=== PATIENT | female | born 1980 | race Two or more races ===

== ENCOUNTER 2017-01-04 14:08 | Emergency (ER) | payer OTHER ==
[~2017-01-04] VITALS: Ht 162.6 cm; Wt 106.1 kg
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
[2017-01-04] MEDS ORDERED: Norco 7.5mg/325mg tab ORAL ONE (14:30)
[2017-01-04 14:58] LABS: APPEARANCE,URINE CLEAR; KETONES,URINE NEGATIVE (NEGATIVE); LEUKOCYTE ESTERASE ,URINE 2+ (NEGATIVE); NITRITE,URINE NEGATIVE (NEGATIVE); PH,URINE 6.5 (4.5-8.0); PROTEIN,URINE NEGATIVE (NEGATIVE); UROBILINOGEN,URINE NORMAL MG/DL (0.0-1.0)
[2017-01-04 15:12] LABS: RBC,URINE 0 /HPF (0 - 2)
[2017-01-04 15:13] LABS: SQUAMOUS EPITHELIAL CELL,UR OCCASIONAL /LPF (NONE/OCC)
[2017-01-04] MEDS ORDERED: VIBRAMYCIN100 MG ORAL (15:28)
[2017-01-04] MEDS ORDERED: METRONIDAZOLE500 MG ORAL (15:28)
[2017-01-04] MEDS ORDERED: Lidocaine 1% MPF 10mg/ml 5ml ONE (15:34)
[2017-01-04] MEDS ORDERED: Lidocaine 1% MPF 10mg/ml 5ml IM ONE (15:45)
[2017-01-04] MEDS ORDERED: Lidocaine 1% MPF 10mg/ml 5ml INJ ONE (15:45)
[2017-01-04] MEDS ORDERED: AMOXICILLIN500 MG ORAL (15:56)
[2017-01-04 16:10] VITALS: BP 155/97
== END 2017-01-04 16:18 | disposition home or self-care (01) ==
LOC: EMR 14:57
DX: A59.00 Urogenital trichomoniasis, unspecified (principal); K02.9 Dental caries, unspecified; Z86.19 Personal history of other infectious and parasitic diseases
CPT/HCPCS: 81003; 81025; 87210; 96372; 96374; 99284; J0696